=== PATIENT | female | born 1975 | race Caucasian/White ===

== ENCOUNTER 2020-12-16 18:16 | Inpatient (IN) | payer OTHER ==
[~2020-12-16] VITALS: Ht 157.5 cm; Wt 57.4 kg
[~2020-12-16 18:16] MED LIST: NORVASC 5 MG TAB5 MG PO
[2020-12-16 19:12] LABS: HEMOGLOBIN 10.5 gm/dl (12.3-15.3); RED BLOOD COUNT 3.1 M/UL (4.00-5.10); WHITE BLOOD COUNT 10.9 K/UL (4.5-11.0)
[2020-12-16 19:43] LABS: BUN/CREATININE RATIO 8 (0-10)
[2020-12-16] MEDS ORDERED: SPIRONOLACTONE50 MG PO (23:55)
[2020-12-16] MEDS ORDERED: LEVOTHYROXINE50 MCG PO (23:56)
[2020-12-16] MEDS ORDERED: FOLIC ACID 1 MG1 MG PO (23:56)
[2020-12-16] MEDS ORDERED: GLUCOPHAGE 500500 MG PO (23:57)
[2020-12-16] MEDS ORDERED: FUROSEMIDE40 MG PO (23:57)
[2020-12-16] MEDS ORDERED: LOPRESSOR 25 MG25 MG PO (23:57)
[2020-12-16] MEDS ORDERED: GABAPENTIN300 MG PO (23:58)
[2020-12-17 12:51] LABS: CRYPTOCOCCUS NEOFORMANS/GATTII Not Detected (Negative); CYTOMEGALOVIRUS Not Detected (Negative); ENTEROVIRUS Not Detected (Negative); ESCHERICHIA COLI K1 Not Detected (Negative); HAEMOPHILUS INFLUENZAE Not Detected (Negative); HERPES SIMPLEX VIRUS 1 Not Detected (Negative); HERPES SIMPLEX VIRUS 2 Not Detected (Negative); HUMAN HERPESVIRUS 6 Not Detected (Negative); HUMAN PARECHOVIRUS Not Detected (Negative); LISTERIA MONOCYTOGENES Not Detected (Negative); NEISERRIA MENINGITIDIS Not Detected (Negative); STREPTOCOCCUS AGALACTIAE Not Detected (Negative); STREPTOCOCCUS PNEUMONIAE Not Detected (Negative); VARICELLA ZOSTER VIRUS Not Detected (Negative)
[2020-12-18 03:00] LABS: HEMOGLOBIN 8.7 gm/dl (12.3-15.3); WHITE BLOOD COUNT 8.2 K/UL (4.5-11.0)
[2020-12-18 03:03] LABS: RED BLOOD COUNT 2.53 M/UL (4.00-5.10)
[2020-12-18 09:50] LABS: GLUCOSE,CSF 94 mg/dL (50-80); TOTAL PROTEIN,CSF 43 mg/dL (20-45)
[2020-12-18 10:08] LABS: RBC (AUTOMATED) 400 10^6 (0); WBC (AUTOMATED 4 10^3 (0-5)
[2020-12-19 03:53] LABS: HEMOGLOBIN 8.6 gm/dl (12.3-15.3); RED BLOOD COUNT 2.57 M/UL (4.00-5.10); WHITE BLOOD COUNT 6.4 K/UL (4.5-11.0)
[2020-12-20 03:22] LABS: RED BLOOD COUNT 2.75 M/UL (4.00-5.10); WHITE BLOOD COUNT 5.3 K/UL (4.5-11.0)
[2020-12-21 03:02] LABS: HEMOGLOBIN 9.5 gm/dl (12.3-15.3); RED BLOOD COUNT 2.8 M/UL (4.00-5.10); WHITE BLOOD COUNT 5.7 K/UL (4.5-11.0)
[2020-12-22 03:38] LABS: HEMOGLOBIN 9.7 gm/dl (12.3-15.3); RED BLOOD COUNT 2.84 M/UL (4.00-5.10); WHITE BLOOD COUNT 5.5 K/UL (4.5-11.0)
[2020-12-24 11:14] LABS: ANTI-CENTROMERE B ANTIBODIES 0.3 AI (0.0-0.9); ANTI-DNA (DS) AB QN 4 IU/mL (0-9); ANTI-JO-1 <0.2 AI (0.0-0.9); ANTICHROMATIN ANTIBODIES 0.3 AI (0.0-0.9); ANTIRIBOSOMAL P ANTIBODIES <0.2 AI (0.0-0.9); ANTISCLERODERMA-70 ANTIBODIES <0.2 AI (0.0-0.9); RNP ANTIBODIES 1.1 AI (0.0-0.9); SJOGREN'S ANTI-SS-A 3.7 AI (0.0-0.9); SJOGREN'S ANTI-SS-B 0.4 AI (0.0-0.9); SMITH ANTIBODIES <0.2 AI (0.0-0.9); SMITH/RNP ANTIBODIES 0.4 AI (0.0-0.9)
[2020-12-24 16:14] LABS: A/G RATIO 0.4 (0.7-1.7); ALBUMIN 2.1 g/dL (2.9-4.4); ALPHA-1-GLOBULIN 0.3 g/dL (0.0-0.4); ALPHA-2-GLOBULIN 0.6 g/dL (0.4-1.0); BETA GLOBULIN 0.8 g/dL (0.7-1.3); GAMMA GLOBULIN 3.6 g/dL (0.4-1.8); GLOBULIN, TOTAL 5.3 g/dL (2.2-3.9); IMMUNOGLOBULIN A, QN, SERUM 404 mg/dL (87-352); IMMUNOGLOBULIN G, QN, SERUM 3759 mg/dL (586-1602); IMMUNOGLOBULIN M, QN, SERUM 458 mg/dL (26-217); M-SPIKE Not Observed g/dL (Not Observed); PROTEIN, TOTAL, SERUM 7.4 g/dL (6.0-8.5)
[2020-12-25 09:24] LABS: BUN/CREATININE RATIO 8 (0-10)
[2020-12-26 02:56] LABS: HEMOGLOBIN 9.2 gm/dl (12.3-15.3); RED BLOOD COUNT 2.68 M/UL (4.00-5.10); WHITE BLOOD COUNT 7.6 K/UL (4.5-11.0)
[2020-12-26 03:32] LABS: BUN/CREATININE RATIO 9 (0-10)
[2020-12-29 04:40] LABS: HEMOGLOBIN 9.9 gm/dl (12.3-15.3); RED BLOOD COUNT 2.85 M/UL (4.00-5.10); WHITE BLOOD COUNT 7.1 K/UL (4.5-11.0)
[2020-12-30 03:27] LABS: RED BLOOD COUNT 2.58 M/UL (4.00-5.10)
[2020-12-30 03:29] LABS: WHITE BLOOD COUNT 11.5 K/UL (4.5-11.0)
[2020-12-31 03:03] LABS: RED BLOOD COUNT 2.57 M/UL (4.00-5.10); WHITE BLOOD COUNT 10.3 K/UL (4.5-11.0)
== END 2020-12-31 16:39 | disposition home or self-care (01) | DRG 97 ==
LOC: ER1 18:16 → PROG CARE 21:23 → CDU 21:23 → PROG CARE 23:12
PROVIDERS: Emergency Medicine; Internal Medicine Infectious Disease; Psychiatry & Neurology Neurology; ADMIT Internal Medicine
PROC: 009U3ZX Drainage of Spinal Canal, Percutaneous Approach, Diagnostic (ICD-10-PCS; principal; 2020-12-17)
PROC: 4A00X4Z Measurement of Central Nervous Electrical Activity, External Approach (ICD-10-PCS; 2020-12-18)
DX: G04.90 Encephalitis and encephalomyelitis, unspecified (principal); G93.41 Metabolic encephalopathy; G61.0 Guillain-Barre syndrome; N17.9 Acute kidney failure, unspecified; J44.1 Chronic obstructive pulmonary disease with (acute) exacerbation; N30.00 Acute cystitis without hematuria; E11.649 Type 2 diabetes mellitus with hypoglycemia without coma; Z20.822 Contact with and (suspected) exposure to COVID-19; D50.9 Iron deficiency anemia, unspecified; I11.0 Hypertensive heart disease with heart failure; E83.42 Hypomagnesemia; E87.6 Hypokalemia; E86.0 Dehydration; I50.9 Heart failure, unspecified; E83.39 Other disorders of phosphorus metabolism; F17.210 Nicotine dependence, cigarettes, uncomplicated; E11.40 Type 2 diabetes mellitus with diabetic neuropathy, unspecified; E03.9 Hypothyroidism, unspecified; Z98.49 Cataract extraction status, unspecified eye; Z82.49 Family history of ischemic heart disease and other diseases of the circulatory system; Z98.890 Other specified postprocedural states; Z79.4 Long term (current) use of insulin; Z79.899 Other long term (current) drug therapy; Z79.84 Long term (current) use of oral hypoglycemic drugs
CPT/HCPCS: 36415; 36600; 70450; 70551; 71045; 80048; 80053; 80307; 81001; 82140; 82272; 82550; 82553; 82607; 82728; 82746; 82784; 82803; 82945; 82962; 83036; 83516; 83540; 83550; 83605; 83735; 83874; 84100; 84132; 84155; 84157; 84165; 84439; 84443; 84484; 85025; 85027; 85045; 85610; 85652; 86140; 86235; 86334; 87040; 87086; 87449; 87483; 89051; 93005; 94640; 94664; 94760; 95816; 97110; 97110-GP-CQ; 97116-GP-CQ; 97162; 97530; 97530-GP-CQ; 99285; J0133; J0692; J0696; J1568; J1630; J1650; J1756; J2920; J3475; J3480; J7030; U0002

== ENCOUNTER 2021-11-08 18:56 | Inpatient (IN) | payer BC, MEDICAID ==
[~2021-11-08] VITALS: Ht 157.5 cm; Wt 56.7 kg
[~2021-11-08 18:56] MED LIST changes: +FOLIC ACID 1 MG1 MG PO; +FUROSEMIDE40 MG PO; +GABAPENTIN300 MG PO; +GLUCOPHAGE 500500 MG PO; +LEVOTHYROXINE50 MCG PO; +LOPRESSOR 25 MG25 MG PO; +SPIRONOLACTONE50 MG PO
[2021-11-08 22:04] LABS: HEMOGLOBIN 8.6 gm/dl (12.3-15.3); RED BLOOD COUNT 2.48 M/UL (4.00-5.10)
[2021-11-08 22:27] LABS: BUN/CREATININE RATIO 6 (0-10)
[2021-11-09] MEDS ORDERED: BREZTRI AEROS10.7 GM INH (09:55)
[2021-11-10 07:08] LABS: HEMOGLOBIN 7.7 gm/dl (12.3-15.3); RED BLOOD COUNT 2.25 M/UL (4.00-5.10)
[2021-11-10 07:12] LABS: WHITE BLOOD COUNT 5.7 K/UL (4.5-11.0)
--- NOTE | 2021-11-10 14:14 | NUR ---
PATIENT TRANSFERED TO HEART CATH. ALERT WITH NO COMPLAINTS WHEN SHE WAS TRANSPORTED VIA STRETCHER AND 2 STAFF.
[2021-11-11 02:59] LABS: HEMOGLOBIN 7.3 gm/dl (12.3-15.3); RED BLOOD COUNT 2.14 M/UL (4.00-5.10)
[2021-11-11] MEDS ORDERED: OMNICEF 300 MG300 MG PO (08:08)
[2021-11-11] MEDS ORDERED: SPIRONOLACTONE50 MG PO (08:10)
[2021-11-11] MEDS ORDERED: ALDACTONE 25MG25 MG PO (08:38)
== END 2021-11-11 10:58 | disposition home or self-care (01) | DRG 683 ==
LOC: ER1 18:56 → CDU 11-09 03:25 → M/S 11-09 19:12
PROVIDERS: Family Medicine; Internal Medicine; Physician Assistant; ADMIT Internal Medicine
DX: N17.9 Acute kidney failure, unspecified (principal); E87.2 Acidosis; G61.0 Guillain-Barre syndrome; N30.00 Acute cystitis without hematuria; I13.0 Hypertensive heart and chronic kidney disease with heart failure and stage 1 through stage 4 chronic kidney disease, or unspecified chronic kidney disease; N18.30 Chronic kidney disease, stage 3 unspecified; D53.9 Nutritional anemia, unspecified; E03.9 Hypothyroidism, unspecified; E87.6 Hypokalemia; E86.0 Dehydration; E11.22 Type 2 diabetes mellitus with diabetic chronic kidney disease; B96.1 Klebsiella pneumoniae [K. pneumoniae] as the cause of diseases classified elsewhere; I95.9 Hypotension, unspecified; E83.42 Hypomagnesemia; I50.9 Heart failure, unspecified; B96.20 Unspecified Escherichia coli [E. coli] as the cause of diseases classified elsewhere; Z98.890 Other specified postprocedural states; Z79.899 Other long term (current) drug therapy; Z79.84 Long term (current) use of oral hypoglycemic drugs; Z80.7 Family history of other malignant neoplasms of lymphoid, hematopoietic and related tissues; Z83.6 Family history of other diseases of the respiratory system; Z98.42 Cataract extraction status, left eye; Z87.891 Personal history of nicotine dependence
CPT/HCPCS: 36415; 36600; 70450; 71045; 80048; 80053; 81001; 82140; 82550; 82553; 82803; 82962; 83735; 84132; 84484; 85025; 85027; 85652; 86140; 87077; 87086; 87186; 93005; 96374; 97161; 97166; 99285; J0696; J1650; J3475